=== PATIENT | female | born 1935 | race Caucasian/White ===

== ENCOUNTER 2018-07-09 09:15 | Emergency (ER) | payer MEDICARE, OTHER ==
[~2018-07-09] VITALS: Ht 170.2 cm; Wt 70.3 kg
== END 2018-07-09 11:01 | disposition home or self-care (01) ==
LOC: ED 09:15
DX: S81.012A Laceration without foreign body, left knee, initial encounter (principal); S16.1XXA Strain of muscle, fascia and tendon at neck level, initial encounter; S00.03XA Contusion of scalp, initial encounter; Z23 Encounter for immunization; W10.9XXA Fall (on) (from) unspecified stairs and steps, initial encounter
CPT/HCPCS: 70450; 72125; 73560; 90471; 90715; 99283-25

== ENCOUNTER 2020-06-14 10:43 | Emergency (ER) | payer MEDICARE, OTHER ==
[~2020-06-14] VITALS: Ht 170.2 cm; Wt 70.3 kg
[2020-06-14] MEDS ORDERED: CO Q-10 RED YE1 EACH PO (11:11)
[2020-06-14] MEDS ORDERED: RED YEAST RICE600 MG PO (11:11)
[2020-06-14] MEDS ORDERED: PREDNISONE20 MG PO (13:06)
== END 2020-06-14 13:17 | disposition home or self-care (01) ==
LOC: ED 10:43
DX: M54.5 Low back pain (principal); E78.00 Pure hypercholesterolemia, unspecified; Z88.2 Allergy status to sulfonamides; Z88.5 Allergy status to narcotic agent; Z88.1 Allergy status to other antibiotic agents; Z79.899 Other long term (current) drug therapy
CPT/HCPCS: 72100; 99283-25

== ENCOUNTER 2020-06-16 10:44 | Emergency (ER) | payer MEDICARE, OTHER ==
[~2020-06-16] VITALS: Ht 152.4 cm; Wt 70.3 kg
[~2020-06-16 10:44] MED LIST: CO Q-10 RED YE1 EACH PO; PREDNISONE20 MG PO; RED YEAST RICE600 MG PO
--- OUTSIDE RECORDS SUMMARY | 2020-06-16 10:46 | XMS ---
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 [facility] VISIT COUNT (12 MO.) 2 [facility] TOTAL 2 NOTE: Visits indicate total known visits. ED/UCC VISIT TRACKING (12 MO.) 06/16/2020 10:44 [facility] TYPE: Emergency COMPLAINT: - BACK PAIN NON INJURY 06/14/2020 10:44 [facility] TYPE: Emergency COMPLAINT: - BACK PAIN NON INJURY INPATIENT VISIT TRACKING (12 MO.) No inpatient visits to display in this time frame [email or web address]
[2020-06-16] MEDS ORDERED: NITROFURANTOIN100 M1 PO (11:11)
[2020-06-16] MEDS ORDERED: LIDODERM1 EACH TOP (11:54)
[2020-06-16] MEDS ORDERED: NORCO 5-325 TA1 EACH PO (11:54)
[2020-06-16] MEDS ORDERED: ONDANSETRON ODT8 MG PO (11:54)
== END 2020-06-16 12:10 | disposition home or self-care (01) ==
LOC: ED 10:44
DX: M54.5 Low back pain (principal); E78.00 Pure hypercholesterolemia, unspecified; Z88.2 Allergy status to sulfonamides; Z88.5 Allergy status to narcotic agent; Z88.1 Allergy status to other antibiotic agents; Z79.52 Long term (current) use of systemic steroids
CPT/HCPCS: 99283; A9270